=== PATIENT | male | born 1985 | race Two or more races ===

== ENCOUNTER 2017-06-13 14:35 | Emergency (ER) | payer BC, MEDICAID ==
[2017-06-13 14:51] VITALS: BP 128/71
[2017-06-13] MEDS ORDERED: BUFFERED LIDOCAINE 10 ML SYRINGE SUBQ STA (15:31)
--- NOTE | 2017-06-13 15:35 | ED Physician Documentation ---
PD HPI UPPER EXT INJURY - Stated complaint Stated Complaint: L FINGER LAC - Chief complaint Chief Complaint: Laceration - History obtained from History obtained from: Patient - History of Present Illness Location: Other (He was cutting wood at home, he is right-handed, tetanus is unknown. He cantilever the hatchet and it cut his left index finger about 2 hours ago.) Review of Systems Constitutional: denies: Fever, Chills GI: reports: Reviewed and negative : reports: Reviewed and negative PD PAST MEDICAL HISTORY - Past Medical History Past Medical History: No - Past Surgical History Past Surgical History: No - Present Medications Home Medications: Ambulatory Orders Medication Instructions Recorded Confirmed No Known Home Medications [No 07/09/13 07/09/13 Known Home Medications] - Allergies Allergies/Adverse Reactions: Allergies Allergy/AdvReac Type Severity Reaction Status Date / Time No Known Drug Allergies Allergy Verified 06/13/17 14:51 - Social History Does the pt smoke?: Yes Smoking Status: Current every day smoker Does the pt drink ETOH?: Yes Does the pt have substance abuse?: No - Immunizations Immunizations are current?: Yes Immunizations: TDAP >10years/unknown - POLST Patient has POLST: No PD ED PE NORMAL - Vitals Vital signs reviewed: Yes - General General: Alert and oriented X 3, No acute distress - Extremities Extremities: Other (On the radial side of the left second digit there is a 2 cm deep laceration just proximal to the nailbed, he is at least moderately insensate distal to this but with good cap refill.) - Neuro Neuro: Alert and oriented X 3, Normal speech - Psych Psych: Normal mood, Normal affect Results - Vitals Vitals: Vital Signs - 24 hr 06/13/17 14:48 Temperature 36.5 C Heart Rate 90 Respiratory 16 Rate Blood Pressure 128/71 O2 Saturation 98 Oxygen O2 Source Room air Procedures - Laceration (location) L 2nd finger Length in cm: 2 Wound type: Curved Neurovascular status: Motor intact, Vascular intact. No: Sensory intact Tendon involvement: Tendon intact Anesthesia: Lidocaine 1%, With bicarb (digital block) Wound Preparation: Hibiclens Skin layer closure: Nylon, Size #-0 - enter number (4-0) Other: Patient tolerated well, Tetanus booster given Complexity: Simple Departure - Departure Disposition: Home, Self Care Clinical Impression: Laceration Condition: Good Record reviewed to determine appropriate education?: Yes Instructions: ED Laceration Hand Comments: Come back for any signs of infection which would include: Redness, swelling, drainage, increased pain, or fevers. Follow-up with your physician in 14 days for suture removal.
[2017-06-13] MEDS ORDERED: BUFFERED LIDOCAINE 10 ML SYRINGE ONE (15:39)
[2017-06-13] MEDS ORDERED: TETANUS/DIPHTHERIA/PERTUSSIS 0.5 ML SYRINGE IM ONE (15:53)
== END 2017-06-13 16:05 | disposition home or self-care (01) ==
LOC: ED 14:35
DX: S61.211A Laceration without foreign body of left index finger without damage to nail, initial encounter (principal); W27.8XXA Contact with other nonpowered hand tool, initial encounter; Y93.89 Activity, other specified; Y92.009 Unspecified place in unspecified non-institutional (private) residence as the place of occurrence of the external cause; Z23 Encounter for immunization; F17.200 Nicotine dependence, unspecified, uncomplicated
CPT/HCPCS: 12001; 90471; 99283

== ENCOUNTER 2017-09-02 14:28 | Outpatient (CLI) | payer BC ==
--- NOTE | 2017-09-02 15:55 | XRAY Report ---
THREE VIEW LEFT THUMB: 09/02/2017 CLINICAL INDICATION: Pain. FINDINGS: AP, lateral, oblique views of the left thumb demonstrate no evidence of fracture or dislocation. The joint spaces are preserved. No foreign body is seen in the soft tissues. IMPRESSION: NORMAL LEFT THUMB. TD: 09/02/2017 15:54
--- NOTE | 2017-09-02 15:56 | XRAY Report ---
FOUR VIEW LEFT WRIST: 09/02/2017 CLINICAL INDICATION: Pain. FINDINGS: AP, lateral, oblique, scaphoid views of the left wrist demonstrate no evidence of fracture or dislocation. The joint spaces are preserved. No foreign body is seen in the soft tissues. IMPRESSION: NORMAL LEFT WRIST. TD: 09/02/2017 15:55
== END 2017-09-02 14:29 | disposition home or self-care (01) ==
LOC: DI 14:28
PROVIDERS: ATTEND Specialist
DX: S69.90XA Unspecified injury of unspecified wrist, hand and finger(s), initial encounter (principal)
CPT/HCPCS: 73140

== ENCOUNTER 2023-04-27 23:06 | Outpatient (CLI) | payer BC, MEDICAID | END 2023-04-27 23:07 | disposition left against medical advice (07) | LOC: EMS 23:06 | DX: R06.2 Wheezing (principal); R06.4 Hyperventilation ==